=== PATIENT | female | born 1935 | race Caucasian/White ===

== ENCOUNTER 2018-06-22 20:43 | Emergency (ER) | payer MEDICARE ==
[~2018-06-22] VITALS: Ht 180.3 cm; Wt 2.6 kg
[~2018-06-22 20:43] MED LIST: AMLODIPINE BES2.5 MG ORAL; AMLODIPINE BESYL5 MG ORAL; COUMADIN7.5 MG ORAL; ENALAPRIL MALEA20 MG ORAL; FUROSEMIDE40 MG ORAL; LANOXIN125 MCG ORAL; LOSARTAN-HCTZ1 EACH PO
[2018-06-22] MEDS ORDERED: METOPROLOL SUCC25 MG ORAL (20:46)
--- NOTE | 2018-06-22 20:55 | NUR ---
ED Nurse Note: pt brought in by [facility] from home c/o abd pain, n/v started today about 30 min ago, pt states she had vomiting x 3, denies any blood in emesis. pt states she had normal BM in ED, denies diarrhea. +tenderness on mid abd area, active BS noted. pt AA&xo4, gcs=15, skin warm and dry, resp even and unlabored on RA, noted high BP 180/103, ERMd aware. will cont monitor. Hx pacemaker, afib, pt currently on coumadin.
[2018-06-22] MEDS ORDERED: Isovue-300 100ml vial INJ PRN (21:00)
[2018-06-22 21:11] VITALS: BP 180/103
--- NOTE | 2018-06-22 21:16 | Emergency Room Report ---
History of Present Illness General Chief Complaint: Abdominal Pain Source: Patient, EMS Present Illness HPI This is an 82-year-old female with a history of atrial fibrillation on Coumadin. She had no previous abdominal or pelvic surgery. She presents with chief complaint abdominal pain with nausea and vomiting. Onset was just prior to arrival. She vomited twice in the ambulance and once here. She said she felt better now. Pain is sharp and crampy. It is diffuse but mostly epigastric area. No diarrhea. No fever chills. Vomiting made it better. Normal dinner. Allergies: Coded Allergies: PENICILLIN G (Verified Allergy, Unknown, 06/22/18) Patient History Past Medical History: see triage record, old chart reviewed, AFib Past Surgical History: other Pertinent Family History: none Social History: Denies: smoking Last Menstrual Period: 200 Now: No Immunizations: other Reviewed Nursing Documentation: PMH: Agreed; PSxH: Agreed Nursing Documentation-PMH Past Medical History: No History, Except For Hx Cardiac Problems: Yes - pacemaker Hx Hypertension: Yes Hx Pacemaker: Yes Hx Diabetes: Yes - DOES NOT TAKE MEDICATION. CONTROLLED WITH DIET Hx Cancer: No Hx Gastrointestinal Problems: No Hx Neurological Problems: No Review of Systems Eye: Denies: eye pain, blurred vision ENT: Denies: ear pain, nose congestion, throat swelling Respiratory: Denies: cough, shortness of breath Cardiovascular: Denies: chest pain, palpitations Gastrointestinal: Reports: abdominal pain, nausea, vomiting; Denies: diarrhea Musculoskeletal: Denies: back pain, joint pain Skin: Denies: rash Neurological: Denies: headache, numbness Endocrine: Denies: increased thirst, increased urine Hematologic/Lymphatic: Denies: easy bruising All Other Systems: negative except mentioned in HPI Physical Exam Vital Signs Date Time Temp Pulse Resp B/P (MAP) Pulse Ox O2 Delivery O2 Flow Rate FiO2 06/22/18 20:42 98.4 104 16 180/100 100 Room Air vitals with high blood pressure Sp02 EP Interpretation: reviewed, normal General Appearance: well appearing, no apparent distress, alert Head: normocephalic, atraumatic Eyes: bilateral eye PERRL, bilateral eye EOMI ENT: hearing grossly normal, normal pharynx Neck: full range of motion, supple, no meningismus Respiratory: chest non-tender, lungs clear, normal breath sounds Cardiovascular #1: no murmur, irregularly irregular Gastrointestinal: no mass, no organomegaly, no bruit, non-distended, abnormal bowel sounds - Increased, tenderness - mild, diffuse. Soft Musculoskeletal: back normal, gait/station normal, normal range of motion Psychiatric: mood/affect normal Skin: warm/dry Medical Decision Making Diagnostic Impression: Primary Impression: Enteritis Additional Impressions: Hypertension Qualified Codes: I10 - Essential (primary) hypertension Hypokalemia Acute prerenal azotemia ER Course Patient presents with nausea vomiting initially. Here she started having diarrhea. This confirmed diagnosis of gastroenteritis. CT scan show enteritis. No evidence of an acute abdomen or obstruction. EKG Diagnostic Results Rate: normal Rhythm: other - Atrial fib ST Segments: other - NSST changes Rhythm Strip Diag. Results EP Interpretation: yes Rate: 89 Rhythm: no PVC's, no ectopy, other - afib CT/MRI/US Diagnostic Results CT/MRI/US Diagnostic Results : Imaging Test Ordered: CT abdomen and pelvis Impression read by radiologist. Enteritis. Last Vital Signs Date Time Temp Pulse Resp B/P (MAP) Pulse Ox O2 Delivery O2 Flow Rate FiO2 06/22/18 20:42 98.4 104 16 180/100 100 Room Air Status: improved Disposition: HOME, SELF-CARE Condition: Stable Scripts Ondansetron (Zofran) 4 Mg Tablet 4 MG ORAL Q6H PRN for Nausea & Vomiting, #10 TAB 0 Refills Prov: Claudio Plata MD 06/23/18 Additional Instructions: Increase fluids. Follow-up with your Dr. in 2-3 days for recheck. Return if worse. Claudio Plata MD Jun 22, 2018 21:16
--- NOTE | 2018-06-22 21:30 | NUR ---
ED Nurse Note: pt continue to c/o nausea, ERMD notified.
[2018-06-22 21:33] LABS: INR 1.6 (0.9-1.1)
[2018-06-22 21:35] LABS: EOSINOPHILS % (AUTO) 1.1 % (0.0-3.0); HEMATOCRIT 39.7 % (37.0-47.0); HEMOGLOBIN 13.5 G/DL (12.0-16.0); LYMPHOCYTES % (AUTO) 10.6 % (20.0-45.0); MEAN CORPUSCULAR VOLUME 89 FL (80-99); MONOCYTES % (AUTO) 5.7 % (1.0-10.0); NEUTROPHILS % (AUTO) 81.7 % (45.0-75.0); PLATELET COUNT 169 K/UL (150-450); RED BLOOD COUNT 4.47 M/UL (4.20-5.40); RED CELL DISTRIBUTION WIDTH 13.3 % (11.6-14.8)
[2018-06-22 21:45] LABS: ALANINE AMINOTRANSFERASE 35 U/L (12-78); ALBUMIN 3.8 G/DL (3.4-5.0); ALBUMIN/GLOBULIN RATIO 0.8 (1.0-2.7); ALKALINE PHOSPHATASE 101 U/L (46-116); ANION GAP 15 mmol/L (5-15); ASPARTATE AMINO TRANSFERASE 45 U/L (15-37); BILIRUBIN,TOTAL 0.7 MG/DL (0.2-1.0); BLOOD UREA NITROGEN 43 mg/dL (7-18); CALCIUM 9.7 MG/DL (8.5-10.1); CARBON DIOXIDE 26 MMOL/L (21-32); CHLORIDE 101 MMOL/L (98-107); CKMB 2.4 NG/ML (0.0-3.6); CREATINE KINASE 118 U/L (26-308); CREATININE 1.3 MG/DL (0.55-1.30); SODIUM 142 MMOL/L (136-145)
[2018-06-22 21:48] LABS: POTASSIUM 2.7 MMOL/L (3.5-5.1)
[2018-06-22 22:50] VITALS: BP 202/83
--- NOTE | 2018-06-22 22:50 | NUR ---
ED Nurse Note: noted pt vomiting and diarrhea and bp 202/83, ERMD notified.
[2018-06-22] MEDS ORDERED: COUMADIN1 MG ORAL (22:55)
[2018-06-22] MEDS ORDERED: ENALAPRIL MALEAT5 MG ORAL (22:55)
[2018-06-22] MEDS ORDERED: METOPROLOL SUCC50 MG ORAL (22:55)
[2018-06-22 23:20] VITALS: BP 171/87
--- NOTE | 2018-06-22 23:40 | NUR ---
ED Nurse Note: pt back from CT, warm blanket provided for comfort, will cont monitor.
[2018-06-23] MEDS ORDERED: ZOFRAN4 MG ORAL (00:01)
[2018-06-23 00:02] VITALS: BP 169/75
[2018-06-23 00:20] VITALS: BP 159/86
--- NOTE | 2018-06-23 00:40 | NUR ---
ED Nurse Note: pt cleared to be d/c per ERMD, pt discharge and aftercare instruction provided w/ prescription, pt education done via discussion and handout, pt advised to follow up with pcp or return to ed if sx worsen or new sx develop, pt verbalized understanding and agrees with plan, vss, ambulatory w/ steady gait, iv d/c and ID band removed, pt was accompanied by granddaughter and son in law, pt was wheelchaired and assisted to the vehicle. pt left w/ all belongings.
[2018-06-23 00:52] VITALS: BP 159/86
--- NOTE | 2018-06-23 09:14 | Diagnostic Imaging Report ---
Clinical Indication: Abdominal pain Technique: No oral contrast utilized, per emergency room physician request IV administration nonionic contrast. Venous phase spiral acquisition obtained through the abdomen and pelvis. Multiplanar reconstructions were generated. Total dose length product 950.61 mGycm. CTDIvol(s) 18.6 mGy. Dose reduction achieved using automated exposure control Comparison: none Findings: The appendix is normal. There are colonic diverticula. No evidence of diverticulitis. Distal small bowel loops demonstrate wall thickening. There is infiltration/edema of the mesenteric fat. No small bowel distention to suggest obstruction. No pneumatosis. No free or loculated intraperitoneal gas or fluid is evident. The distal esophagus and stomach are unremarkable. There is mild prominence to the central intrahepatic bile ducts. No extrahepatic biliary ductal dilatation. The liver, gallbladder, pancreas, spleen, adrenals are all unremarkable. The right kidney demonstrates a large cyst with mural calcifications, as well as other smaller cysts. Both kidneys demonstrate subcentimeter low-attenuation lesions which are too small to characterize. The uterus demonstrates multiple dense calcifications. No pelvic mass or adenopathy. No retroperitoneal or mesenteric mass or adenopathy. The heart is enlarged. Pacemaker wires are seen within the right heart. There are dense pericardial calcifications noted. Interstitial septal thickening and some groundglass opacity are seen at both lung bases. The bones demonstrate degenerative spondylosis changes. Impression: Wall thickening of distal small bowel loops with infiltration and edema of the adjacent mesenteric fat. This indicates enteritis, nonspecific as regards etiology, either infectious or noninfectious inflammatory Cardiomegaly Bilateral basilar pulmonary interstitial septal thickening and groundglass opacity. This is nonspecific, could indicate mild pulmonary edema given the enlarged heart Pericardial calcifications, presumably on the basis of prior inflammation Right renal cysts. Bilateral subcentimeter low-attenuation renal lesions which are too small to characterize, most likely benign simple cysts. No further follow-up is necessary Other findings as noted, including calcified uterine fibroids, pacemaker, colonic diverticulosis, degenerative spondylosis The CT scanner at [facility] is accredited by the [employer] and the scans are performed using protocols designed to limit radiation exposure to as low as reasonably achievable to attain images of sufficient resolution adequate for diagnostic evaluation.
--- NOTE | 2018-06-23 11:16 | Diagnostic Imaging Report ---
Indication: Chest pain Technique: One view of the chest Comparison: none Findings: Exam is somewhat limited as patient and covers the left lower chest. The heart is enlarged. Linear subpleural opacities on the right have appearance of curly B lines and suggest mild interstitial edema. No focal airspace consolidation. Pleural spaces are clear. There is a left chest pacemaker Impression: Cardiomegaly. Evidence of mild interstitial congestion
== END 2018-06-23 00:40 | disposition home or self-care (01) ==
LOC: EDBD 20:43 → EMR 21:16
DX: K52.9 Noninfective gastroenteritis and colitis, unspecified (principal); I10 Essential (primary) hypertension; E87.6 Hypokalemia; R79.89 Other specified abnormal findings of blood chemistry; Z88.0 Allergy status to penicillin; Z95.0 Presence of cardiac pacemaker; E11.9 Type 2 diabetes mellitus without complications; I48.91 Unspecified atrial fibrillation; I51.7 Cardiomegaly; N20.0 Calculus of kidney; D25.9 Leiomyoma of uterus, unspecified; K57.90 Diverticulosis of intestine, part unspecified, without perforation or abscess without bleeding; M47.9 Spondylosis, unspecified
CPT/HCPCS: 36415; 71045; 74177; 80053; 82550; 82553; 83690; 84484; 85025; 85610; 85730; 93005; 96365; 96374; 96375; 96376; 99284; J0360; J2405; J3480; J7040; Q9967; J8499